=== PATIENT | male | born 1950 | race Caucasian/White ===

== ENCOUNTER 2018-07-26 00:20 | Outpatient (CLI) | payer MEDICARE, OTHER ==
--- NOTE | 2018-07-29 13:59 | EKG ---
Test Reason : Blood Pressure : / mmHG Vent. Rate : 076 BPM Atrial Rate : 076 BPM P-R Int : 164 ms QRS Dur : 090 ms QT Int : 376 ms P-R-T Axes : 038 -06 -01 degrees QTc Int : 423 ms Normal sinus rhythm Moderate voltage criteria for LVH, may be normal variant Borderline ECG No previous ECGs available Confirmed by LINK SAUCEDO ([id number]) on 07/29/2018 1:58:47 PM Referred By: DENISE Confirmed By:LINK SAUCEDO
== END 2018-07-26 00:21 | disposition home or self-care (01) ==
LOC: LABBT 00:20
PROVIDERS: ATTEND Neurological Surgery
DX: Z01.810 Encounter for preprocedural cardiovascular examination (principal); M54.12 Radiculopathy, cervical region
CPT/HCPCS: 93005; 93010

== ENCOUNTER 2018-08-03 08:25 | Day surgery (SDC) | payer MEDICARE, OTHER ==
[2018-07-26 16:27] VITALS: BMI 33.0
--- NOTE | 2018-08-03 07:12 | HP ---
HISTORY OF PRESENT ILLNESS: Mr. Arciniega is a very pleasant 68-year-old man here today for evaluation of severe left-sided neck and shoulder blade pain as well as arm pain more concerning though he has biceps weakness that has progressed over the last eight weeks. He reports pain that has been persistent for many years, but the weakness is worse per his pain management physician, Dr. Baez, got an MRI of the cervical spine. This was performed at [facility], which reveals severe foraminal stenosis bilaterally at C4-5 and C5-6 that would fit well with his symptoms. He has not had any conservative treatment today. However, his weakness precludes this treatment in my opinion. PAST MEDICAL HISTORY: Significant for chronic pain syndrome, cataracts, gout, hypertension, and osteoarthritis. SURGICAL HISTORY: Left knee replacement, Kate fundoplication, lumbar laminectomy and fusion, and cataract surgery. CURRENT MEDICATIONS: 1. Enalapril. 2. Metoprolol. 3. Allopurinol. 4. Citalopram. 5. Quetiapine. 6. Omeprazole. ALLERGIES: NO KNOWN DRUG ALLERGIES. REVIEW OF SYSTEMS: Patient denies headache. Denies dizziness. Denies gait abnormality. Reports arm weakness. Reports arm pain. Reports neck pain. Denies bladder or bowel changes. PHYSICAL EXAMINATION: GENERAL: Patient is alert and oriented x3. MUSCULOSKELETAL: Gait is normal. No ataxia. EXTREMITIES: Upper extremity exam reveals 4/5 strength in the left biceps on elbow flexion. He has 5/5 strength in all other movements of the right upper extremity and left upper extremity. ASSESSMENT: Cervical radiculopathy and arm weakness. PLAN: Dr. Borjas met with the patient, reviewed imaging, and advocated for a C4-C6 ACDF. He explained to the patient the risks, benefits, and alternatives to the procedure. The patient expressed understanding and elected for surgery as discussed. I do believe the patient has been competent and capable of making medical decisions for himself. We will move forward with surgery as planned. Job ID: [id number]
[2018-08-03] MEDS ORDERED: Fentanyl 100 MCG/2 ML VIAL ONE ×3 (13:09→15:30)
[2018-08-03] MEDS ORDERED: Lidocaine 2% Jelly 5 ML TUBE ONE (13:09)
[2018-08-03] MEDS ORDERED: Albuterol Sulfate HFA (OR ONLY) ONE (13:29)
[2018-08-03] MEDS ORDERED: Ondansetron HCl/PF 4 MG/2 ML Vial IVP PRN (15:08)
[2018-08-03] MEDS ORDERED: Promethazine HCl 25 MG/ML VIAL IM PRN (15:08)
[2018-08-03] MEDS ORDERED: Promethazine HCl 25 MG/ML VIAL SLOW IVP PRN (15:08)
[2018-08-03] MEDS ORDERED: Tamsulosin HCl 0.4 MG CAP ONE (15:43)
[2018-08-03] MEDS ORDERED: PROPOFOL 200 MG/20 ML VIAL ONE (16:01)
[2018-08-03] MEDS ORDERED: Dexamethasone 20 MG/5 ML VIAL ONE (16:01)
[2018-08-03] MEDS ORDERED: PROVENTIL INHALER 6.7 G (200 INHALATIONS) ONE (16:01)
[2018-08-03] MEDS ORDERED: Rocuronium Bromide 10 MG/ML (10ML VIAL) ONE (16:01)
[2018-08-03] MEDS ORDERED: Succinylcholine Chloride 20 MG/ML 10 ml SYRINGE FS ONE (16:01)
[2018-08-03] MEDS ORDERED: ePHEDrine 50 MG/ML VIAL ONE (16:01)
[2018-08-03] MEDS ORDERED: Ondansetron PF 4 MG/2 ML Vial ONE (16:01)
[2018-08-03] MEDS ORDERED: Lidocaine 1% PF 5 ML VIAL ONE (16:01)
[2018-08-03] MEDS ORDERED: PHENYLEPHRINE-NS 100 MCG/ML 10 ML SYRINGE ONE (16:01)
--- NOTE | 2018-08-03 16:13 | OP ---
DATE OF PROCEDURE: 08/03/2018 PRODUCT DISTRIBUTION SPECIALIST: Gato Denney PA-C INDICATION: Pain. DIAGNOSIS: Cervical radiculopathy with pain, numbness, and weakness. PROCEDURE PERFORMED: Anterior cervical diskectomy and fusion, C4 to C6. ANESTHESIA: General. DESCRIPTION OF PROCEDURE: The patient was brought into the operating room and placed under general anesthesia. He was placed on table in the supine position. A transverse incision was planned over the lateral aspect of the neck on the right. After prepping and draping and after an appropriate preoperative pause, the incision was created. The underlying platysma muscle was identified and incised. A blunt tissue plane anterior to the sternocleidomastoid muscle was used to gain access to the prevertebral space. Self-retaining retractors were placed. After confirming the appropriate level with C-arm fluoroscopy, an annulotomy was performed at C5-C6 disk space. All disk material as well as anterior and posterior osteophytes were removed. After complete decompression, an 8-mm lordotic PEEK cage packed with allograft and autograft material was placed in the interbody space. We then redirected our attention to the level above at C4-C5, where again an annulotomy was performed. All disk material as well as anterior and posterior osteophytes were removed. After complete decompression, a 7-mm lordotic PEEK cage packed with allograft and autograft material was placed in the interbody space. We then fashioned the plate to the front of spine and secured with a total of 6 screws. Midline and lateral structures were inspected and found to be free from significant trauma. The wound was irrigated. Hemostasis was maintained throughout. The wound was then closed in anatomic layers and a pressure dressing was applied. There were no known procedural complications. Job ID: [id number]
== END 2018-08-03 18:00 | disposition home or self-care (01) ==
LOC: SDC 08:25
PROVIDERS: ATTEND Neurological Surgery
PROC: 0RG20A0 Fusion of 2 or more Cervical Vertebral Joints with Interbody Fusion Device, Anterior Approach, Anterior Column, Open Approach (ICD-10-PCS; principal; 2018-08-03)
PROC: 0RT30ZZ Resection of Cervical Vertebral Disc, Open Approach (ICD-10-PCS; 2018-08-03)
DX: M54.12 Radiculopathy, cervical region (principal); G89.4 Chronic pain syndrome; M10.9 Gout, unspecified; I10 Essential (primary) hypertension; M19.90 Unspecified osteoarthritis, unspecified site; Z79.899 Other long term (current) drug therapy; Z98.1 Arthrodesis status; Z98.890 Other specified postprocedural states
CPT/HCPCS: 20930; 20936; 22551; 22552; 22845; 22853 ×2; 76000; C1713 ×2; C1776; J0690; J1100; J2001; J2405; J2704; J3010; J3490